=== PATIENT | female | born 1940 | race African-American/Black ===

== ENCOUNTER 2019-04-20 15:59 | Emergency (ER) | payer OTHER ==
[2019-04-20 16:23] VITALS: BP 0/0; PULSE 0; BMI 27.3
--- NOTE | 2019-04-20 16:23 | PDOC ---
History of Present Illness - General Stated Complaint: UNCONSCIOUS Time Seen by Provider: 04/20/19 16:15 - History of Present Illness Initial Comments: 04/20/19 16:18 79 yo F CHF, Cardiac Pacemaker, BIBEMS unwitnessed cardiac arrest. Patient found down in [facility] bathroom following at approximately 3:25 PM this evening. Patient noted to have asystole on cafeteria monitor. Given Epinephrine x 4, intubated 7.5 ET, absent ROSC in field. Per pt./ friends at bedside, they report patient in bathroom 15 minutes, not responding to questions. They broke door down and pt. was found laying on bathroom floor at [address] Friends began compressions. PMHx: as noted above ROS: as noted SHx: Pt. son Denies Etoh, IVDA, tobacco use Allergies: NKDA Review of Systems - Review of Systems Comments:: 04/20/19 16:21 Unable to obtain *Physical Exam - Physical Exam Comments: 04/20/19 16:21 GENERAL: Patient comatose, unresponsive to verbal or tactile stimuli HEAD: No signs of trauma, normocephalic, atraumatic EYES: Pupils fixed. Sclera anicteric, conjunctiva clear ENT: Auricles normal inspection,, nares patent, oropharynx clear without exudates. Moist mucosa NECK: Normal ROM, supple, no lymphadenopathy, JVD, or masses LUNGS: No distress, clear to auscultation bilaterally HEART: Regular rate and rhythm, normal S1 and S2, no murmurs, rubs or gallops, peripheral pulses normal and equal bilaterally. ABDOMEN: Soft, nontender, normoactive bowel sounds. No masses EXTREMITIES :2+ Pitting edema BL LE. NEUROLOGICAL: Cranial nerves not intact SKIN: Warm, Dry, normal turgor, no rashes or lesions noted Medical Decision Making - Medical Decision Making 04/20/19 16:22 79 yo F BIBEMS HTN, CHF, Aortic valve replacement, Pacemaker placement, unwitnessed cardiac arrest, found down in bathroom, unresponsive at approximately 315 PM. Patient comatose, PEA on monitor, with absent pulses throughout. Compressions started in ED 3:35PM, Epinephrine x 2, Calcium 2 mg, Sodium Bicarb x 1 amp. Multiple rounds of compressions with multiple pulse checks, absent ROSC. Asystole in ED. Ed Course: ET tube confirmed with proper placement Bedside cardiac echo with cardiac standstill and global hypokinesis Absent pulse, respirations Time of pronounced 4:03 PM 04/20/19 17:21 Pt. son notified of pt. ( Ant Montalvo [phone] ) 04/20/19 17:29 vocational examiner notified and declines case, [id number] Logan Small 04/20/19 17:37 Pt. PMD Maynor Canales [phone], [address] contacted. Awaiting call back 04/20/19 17:41 Dr. Maynor Canales notified of pt. *DC/Admit/Observation/Transfer Diagnosis at time of Disposition: Cardiac arrest - Discharge Dispostion Disposition: Condition at time of disposition: Decision to Admit order: No - Referrals - Patient Instructions - Post Discharge Activity
--- NOTE | 2019-04-20 16:26 | PDOC ---
Attending Attestation - Resident Resident Name: ArtRomuloKeenan - ED Attending Attestation I have performed the following: I have examined & evaluated the patient, The case was reviewed & discussed with the resident, I agree w/resident's findings & plan, Exceptions are as noted - HPI HPI: 04/20/19 16:22 79 yo F unknown past medical history here from [facility] found down in cardiac arrest. pt was found in bathroom, on EMS arrival. was in asystole, given 4 round epi, and ACLS, intubated on scene, no ROSC. on arrival to ED pt found to be pulseless, no movement, no spont respirations. continued CPR in progress. - Physicial Exam PE: 04/20/19 16:24 pt unresponsive, intubated, no spon respirations. on ventilation rhonchorous breath sounds bilaterally no cardiac activity, no movement no pulses palpable. skin warm and dry. - Medical Decision Making 04/20/19 16:24 s/p cardiac arrest. ACLS continued in ER. vfib, given epi, bicarb, and calcium. no rosc. focused bedside echo confirmed cardiac arrest no cardiac activity. ET tube placement confirmed with direct visualization. time of called at 4:03 pm. [facility] member present and updated. 04/20/19 17:28 pt son came to ed, informed in ED regarding . PCP is Maynor Canales, will call pt pcp to inform of . medical staffing coordinator called.
== END 2019-04-20 20:52 | disposition expired ==
LOC: JER 15:59
PROC: 5A12012 Performance of Cardiac Output, Single, Manual (ICD-10-PCS; principal; 2019-04-20)
PROC: 0BH17EZ Insertion of Endotracheal Airway into Trachea, Via Natural or Artificial Opening (ICD-10-PCS; 2019-04-20)
DX: I46.9 Cardiac arrest, cause unspecified (principal); I10 Essential (primary) hypertension; I25.10 Atherosclerotic heart disease of native coronary artery without angina pectoris; Z95.0 Presence of cardiac pacemaker
CPT/HCPCS: 31500; 92950; 93308; 99284-25